=== PATIENT | female | born 1940 | race Caucasian/White ===

== ENCOUNTER 2016-10-01 07:30 | Inpatient (IN) | payer MEDICARE, BC ==
[~2016-10-01 07:30] MED LIST: TRANEXAMIC ACID 1,000 MG in NORMAL SALINE 100 ML IV SCH
[2016-10-01] MEDS ORDERED: ONDANSETRON HCL 4 MG/2 ML VIAL IV ONE (07:52)
[2016-10-01] MEDS ORDERED: METOCLOPRAMIDE HCL 10 MG/2 ML VIAL IV ONE (07:52)
[2016-10-01] MEDS ORDERED: LIDOCAINE HCL 1% 20 ML VIAL SUBCUT ONE (07:52)
[2016-10-01] MEDS ORDERED: NALOXONE HCL 0.4 MG/ML VIAL IV PRN ×9 (07:55→14:14)
[2016-10-01] MEDS ORDERED: DIPHENHYDRAMINE 25 MG CAPSULE PO PRN ×3 (07:55→14:14)
[2016-10-01] MEDS ORDERED: DIPHENHYDRAMINE 50 MG/ML VIAL IV PRN ×3 (07:55→14:14)
[2016-10-01] MEDS ORDERED: NALBUPHINE HCL 10 MG/ML AMP IV PRN ×3 (07:55→14:14)
[2016-10-01] MEDS ORDERED: ONDANSETRON HCL 4 MG/2 ML VIAL IV PRN (07:56)
[2016-10-01] MEDS ORDERED: FENTANYL 100 MCG/2 ML VIAL IV PRN (07:56)
[2016-10-01] MEDS ORDERED: LACTATED RINGERS 1,000 ML IV SCH (08:00)
[2016-10-01] MEDS ORDERED: FAMOTIDINE IN SALINE, ISO-OSM 20 MG/50 ML PIGGYBACK IV SCH (08:00)
[2016-10-01] MEDS ORDERED: CLINDAMYCIN/D5W 50 ML IV ONE (08:32)
[2016-10-01] MEDS ORDERED: FAMOTIDINE IN SALINE, ISO-OSM 50 ML IV ONE (08:44)
[2016-10-01] MEDS ORDERED: MIDAZOLAM HCL 2 MG/2 ML VIAL ONE (08:46)
[2016-10-01] MEDS ORDERED: FENTANYL 100 MCG/2 ML VIAL ONE (08:47)
[2016-10-01] MEDS ORDERED: MORPHINE SULFATE/PF 10 MG/10 ML VIAL ONE ×2 (08:47→10:30)
[2016-10-01] MEDS ORDERED: TETRACAINE HCL 1% 20 MG/2 ML AMP ONE (08:55)
[2016-10-01] MEDS ORDERED: KETOROLAC TROMETHAMINE 30 MG/ML VIAL ONE (10:30)
[2016-10-01] MEDS ORDERED: BUPIVACAINE/EPI 0.25% 1 VIAL VIAL ONE (10:31)
[2016-10-01] MEDS ORDERED: ROPIVACAINE HCL 0.5% 30 ML ONE ×2 (10:31→12:16)
[2016-10-01] MEDS ORDERED: CLINDAMYCIN IV ONE (10:46)
[2016-10-01] MEDS ORDERED: D5W IV ONE (10:46)
[2016-10-01] MEDS ORDERED: ONDANSETRON HCL 4 MG/2 ML VIAL ONE (12:09)
[2016-10-01] MEDS ORDERED: NORMAL SALINE FLUSH 40 ML ONE (12:45)
[2016-10-01] MEDS ORDERED: LACTATED RINGERS 1,000 ML IV ONE (21:26)
[2016-10-01] MEDS: LACTATED RINGERS 1,000 ML IV SCH (23:00)
[2016-10-01] MEDS ORDERED: CYCLOSPORINE OPHTH 0.05% 1 DROP/0.4 ML DROPERETTE EACHEYE SCH (23:30)
[2016-10-01] MEDS: CLINDAMYCIN/D5W 600 MG/50 ML 600 MG PIGGYBACK IV SCH (23:37)
[2016-10-02 05:49] LABS: BASOPHILS 0.7 % (0.0-2.0); EOSINOPHILS# 0.1 X 10^3uL (0.0-0.4); HEMOGLOBIN 9.6 g/dL (12.0-16.0); LYMPHOCYTES 27.3 % (20.0-40.0); LYMPHOCYTES# 1.3 X 10^3uL (0.8-3.8); MEAN PLATELET VOLUME 9.2 fL (7.4-10.4); MONOCYTES# 0.4 X 10^3uL (0.2-1.0); NEUTROPHILS# 3.1 X 10^3uL (2.6-6.7); RED BLOOD COUNT 4.23 X 10^6uL (4.20-6.10); WHITE BLOOD COUNT 4.9 X 10^3uL (3.9-10.7)
[2016-10-02 06:22] LABS: MEAN CORPUSCULAR HEMOGLOBIN 22.8 pg (29.0-35.0); RED CELL DISTRIBUTION WIDTH 16.6 % (11.5-14.5)
[2016-10-02] MEDS: LACTATED RINGERS 1,000 ML IV SCH (06:47)
[2016-10-02] MEDS ORDERED: LACTATED RINGERS 1,000 ML IV SCH ×6 (08:14→13:11)
[2016-10-02] MEDS ORDERED: VANCOMYCIN HCL 1,000 MG in NORMAL SALINE 250 ML IV ONE (08:14)
[2016-10-02] MEDS ORDERED: TRANEXAMIC ACID 1,000 MG in NORMAL SALINE 100 ML IV SCH (08:30)
[2016-10-02] MEDS ORDERED: MORPHINE SULFATE 4 MG/ML SYR ONE (08:39)
[2016-10-02] MEDS ORDERED: VANCOMYCIN HCL 1,000 MG/20 ML VIAL ONE (08:39)
[2016-10-02] MEDS ORDERED: NORMAL SALINE 10 ML VIAL ONE (08:40)
[2016-10-02] MEDS ORDERED: BACITRACIN 50,000 UNITS VIAL IM ONE (08:40)
[2016-10-02] MEDS ORDERED: ROPIVACAINE HCL 0.5% 30 ML ONE (08:40)
[2016-10-02] MEDS ORDERED: BACITRACIN 14 APP/14 GM TUBE TOPICAL ONE (08:40)
[2016-10-02] MEDS ORDERED: BUPIVACAINE/EPI 0.25% 1 VIAL VIAL ONE (08:40)
[2016-10-02] MEDS ORDERED: NORMAL SALINE FLUSH 30 ML ONE (08:53)
[2016-10-02] MEDS ORDERED: CYCLOSPORINE OPHTH 0.05% 1 DROP/0.4 ML DROPERETTE EACHEYE SCH ×3 (09:00→21:00)
[2016-10-02] MEDS ORDERED: KETOROLAC TROMETHAMINE 30 MG/ML VIAL ONE (09:24)
[2016-10-02] MEDS ORDERED: MIDAZOLAM HCL 2 MG/2 ML SYR IV ONE ×2 (09:55→13:11)
[2016-10-02] MEDS ORDERED: MIDAZOLAM HCL 2 MG/2 ML VIAL ONE (09:58)
[2016-10-02] MEDS ORDERED: FAMOTIDINE IN SALINE, ISO-OSM 20 MG/50 ML PIGGYBACK IV SCH ×2 (10:00→13:11)
[2016-10-02] MEDS ORDERED: TETRACAINE HCL 1% 20 MG/2 ML AMP ONE (10:00)
[2016-10-02] MEDS ORDERED: FAMOTIDINE IN SALINE, ISO-OSM 50 ML IV ONE (10:03)
[2016-10-02] MEDS ORDERED: EPHEDrine SULFATE 50 MG/ML VIAL ONE (10:38)
[2016-10-02] MEDS ORDERED: MORPHINE SULFATE 10 MG/ML SYR IV PRN (13:11)
[2016-10-02] MEDS ORDERED: DIPHENHYDRAMINE 50 MG/ML VIAL IV PRN (13:11)
[2016-10-02] MEDS ORDERED: ONDANSETRON HCL 4 MG/2 ML VIAL IV PRN ×2 (13:11→14:50)
[2016-10-02] MEDS ORDERED: NALBUPHINE HCL 10 MG/ML AMP IV PRN (13:11)
[2016-10-02] MEDS ORDERED: FENTANYL 100 MCG/2 ML VIAL IV PRN (13:11)
[2016-10-02] MEDS ORDERED: NALOXONE HCL 0.4 MG/ML VIAL IV PRN ×3 (13:11)
[2016-10-02] MEDS ORDERED: DIPHENHYDRAMINE 25 MG CAPSULE PO PRN (13:11)
--- NOTE | 2016-10-02 14:14 | OPERATIVE REPORT ---
DATE OF SURGERY: 10/02/16 SURGEON: Rene Cullen DO ANESTHESIA: Spinal. PREOPERATIVE DIAGNOSIS: Left knee osteoarthritis. POSTOPERATIVE DIAGNOSIS: Left knee osteoarthritis. OPERATION PERFORMED: Left total knee arthroplasty. SPECIMENS REMOVED: Diseased bone and soft tissue. ESTIMATED BLOOD LOSS: Minimal. TOTAL TOURNIQUET TIME: 75 minutes. PROCEDURE NOTE: The patient was brought to the operating room suite and after administration of spinal anesthesia the left lower extremity was prepped and draped in a sterile fashion. The patient's varus deformity was corrected to draw the incision line on the skin. The incision site was injected with 0.25% bupivacaine with epinephrine prior to incision. A midline longitudinal incision was made over the anterior aspect of the left knee. Dissection was carried down to the extensor mechanism. There was a significant amount of scar tissue on the anterior aspect of the knee which was dissected out to make appropriate flaps. The medial parapatellar arthrotomy was created. A portion of the anterior fat pad was removed for visualization purposes. The patella was everted and an intramedullary drill was inserted into the femoral canal and the femoral cutting guide was placed and appropriate bone defects were created with a saw on both of the femur and tibia. The tibia cutting guide was extramedullary. All appropriate bone defects were made on the femur, tibia and patella. Trial implants were inserted. The knee was well balanced with a 10 mm trial spacer. The knee was taken through a full range of motion and noted to be exceptionally stable and well balanced in both flexion, extension, varus and valgus. The knee was copiously irrigated with bacitracin infused with normal saline with pulsatile lavage and the final implants were cemented into place. While the cement was curing, the heal was placed on the Peck stand. All excess cement was removed. The knee was again copiously irrigated with bacitracin infused with normal saline and was injected with the cocktail containing 150 mg of ropivacaine, 15 mg of Ketorolac, 0.3 mg epinephrine, and 4 mg morphine sulfate in total volume of 60 mL, making up the difference utilizing 0.9% normal saline for a total volume of 60 mL. The final polyethylene was inserted and snapped into place with the locking pin. The knee was then closed in a stepwise fashion utilizing #2 Fiberwire followed by intermittent #1 Vicryl on the parapatellar arthrotomy. The deep fascia was closed with 0 Vicryl, followed by 2-0 Vicryl, followed by 3-0 Monocryl subcutaneously at the level of the skin, followed by Dermabond. The knee was dressed with an occlusive Aquacel dressing, followed by an Max bandage. The patient did have a drain which was in place and was not sewn into place. Patient's leg was fitted with a AJITH hose and a Cryo-Cuff and she was transferred to the recovery room in stable condition. FINAL IMPLANTS 1. [employer] cobalt bone cement, high viscosity with Gentamycin. 2. [employer] fixed cruciate tibial plate interlock with locking bar, Vanguard, size 67 mm, titanium cobalt chrome molybdenum alloy. 3. [employer] Vanguard posterior stabilize open box femoral component left, 65 mm, cobalt chrome molybdenum alloy. 4. [employer] Vanguard series A standard patella 3 pegs, ultrahigh molecular weight polyethylene 34 mm x 8.5 mm. 5. [employer] Vanguard knee system posterior stabilized tibial bearing, ultrahigh molecular weight polyethylene, 10 mm x 63/67 mm ultrahigh molecular weight polyethylene. [facility]
[2016-10-02] MEDS ORDERED: MORPHINE SULFATE 2 MG/ML SYR ONE (14:19)
[2016-10-02] MEDS ORDERED: HYDROcodone/APAP 5/325 MG 1 TAB TABLET PO PRN (14:50)
--- NOTE | 2016-10-02 18:19 | HISTORY & PHYSICAL ---
DATE OF CONSULTATION: 10/02/16 PHYSICIAN: Rene Cullen DO HISTORY OF PRESENT ILLNESS: Patient is a 75-year-old female who presented to the operating room on 10/01/16 for a left total knee arthroplasty. The patient did receive spinal anesthesia with narcotics. There were some problems with the instruments and the autoclave machine, and the patients surgery was not able to be done on the scheduled date, and due to the fact that she had received spinal narcotics, she needed to be admitted to the hospital overnight for neurovascular observation. PAST MEDICAL HISTORY 1. Bilateral knee osteoarthritis. 2. Osteopenia. 3. Dry eye syndrome. 4. Colon polyps. 5. Acinetic keratosis. 6. Tinnitus. 7. Dyspnea on exertion. ALLERGIES: Cephalosporins. FAMILY HISTORY: Mother and father are both at ages 74 and 80 with coronary artery disease and lung cancer respectively. She occasionally uses alcohol and has never been a smoker. MEDICATIONS Calcium. Vitamin D. Glucosamine chondroitin. Ophthalmic drop Restasis. PHYSICAL EXAMINATION HEENT: Pupils are equally round and reactive to light and accommodation. Extraocular muscles are intact. CHEST: Clear to auscultation bilaterally. HEART: Regular rate and rhythm with normal S1, S2. ABDOMEN: Soft, nontender, nondistended. BILATERAL LOWER EXTREMITIES: Without sensation as the patient just received spinal anesthesia. ASSESSMENT: Status post spinal anesthesia with narcotics with a cancelled total knee arthroplasty on the left knee. PLAN: Patient will be admitted for neurovascular observation, and will have her total knee arthroplasty done the next day which is 10/02/16. Patient will be NPO at midnight and will receive IV fluids. MTDD
[2016-10-02] MEDS: DOCUSATE SODIUM 100 MG CAPSULE PO SCH (22:33)
[2016-10-02] MEDS: CYCLOSPORINE OPHTH 0.05% 1 DROP/0.4 ML DROPERETTE EACHEYE SCH (22:33)
[2016-10-02] MEDS: VANCOMYCIN HCL 1,000 MG in NORMAL SALINE ADDVANTAGE 250 ML IV SCH (22:33)
[2016-10-02] MEDS: ACETAMINOPHEN 325 MG TABLET PO PRN (23:30)
[2016-10-03] MEDS: ACETAMINOPHEN 325 MG TABLET PO PRN ×5 (05:47→20:24)
[2016-10-03 06:24] LABS: BASOPHILS 0.2 % (0.0-2.0); EOSINOPHILS 0.5 % (0.0-6.0); HEMATOCRIT 28.6 % (36.0-48.0); HEMOGLOBIN 9.1 g/dL (12.0-16.0); LYMPHOCYTES 17.2 % (20.0-40.0); LYMPHOCYTES# 1.2 X 10^3uL (0.8-3.8); MEAN CELL VOLUME 71.4 fL (84.0-102.0); MEAN CORPUSCULAR HEMOGLOBIN 22.9 pg (29.0-35.0); MEAN PLATELET VOLUME 9.1 fL (7.4-10.4); MONOCYTES# 0.7 X 10^3uL (0.2-1.0); NEUTROPHILS 72.4 % (54.0-75.0); NEUTROPHILS# 4.9 X 10^3uL (2.6-6.7); RED CELL DISTRIBUTION WIDTH 16.7 % (11.5-14.5); WHITE BLOOD COUNT 6.8 X 10^3uL (3.9-10.7)
[2016-10-03 06:33] LABS: MONOCYTES 9.7 % (2.0-10.0)
[2016-10-03] MEDS: VANCOMYCIN HCL 1,000 MG in NORMAL SALINE ADDVANTAGE 250 ML IV SCH ×2 (08:25→20:17)
[2016-10-03] MEDS: DOCUSATE SODIUM 100 MG CAPSULE PO SCH ×2 (08:25→20:18)
[2016-10-03] MEDS: BISACODYL 5 MG TABLET PO SCH (08:25)
[2016-10-03] MEDS: ENOXAPARIN SODIUM 30 MG/0.3 ML SYR SUBCUT SCH ×2 (08:26→20:18)
--- NOTE | 2016-10-03 10:45 | RADIOLOGY REPORT ---
Two views of the left knee are compared with prior films dated 11/22/2015. There has been interval total knee arthroplasty. Components appear intact and in appropriate position. No other change is identified. IMPRESSION: Unremarkable total knee arthroplasty. MTDD
[2016-10-03] MEDS: CYCLOSPORINE OPHTH 0.05% 1 DROP/0.4 ML DROPERETTE EACHEYE SCH ×2 (13:42→20:19)
[2016-10-03] MEDS: POLYETHYLENE GLYCOL 3350 17 GM POWD.PACK PO SCH (13:43)
--- NOTE | 2016-10-03 16:29 | PROGRESS NOTE: Orthopedics ---
Orthopedic PN Subjective - Subjective Principal Diagnosis: s/p Left Total Knee Arthroplasty Post-op Day: 1 Interval history: the patient has been doing She has been up and a Her [facility] has been dis She did not get very good sleep last Night, but she is doing better She is complaining of weakness with motion of her foot Ortho PN Objective Exam - Latest Vital Signs and I&O Latest Vital Signs/I&O: Vital Signs Temp 36.8 C 10/03/16 11:00 Pulse 80 10/03/16 11:00 Resp 16 10/03/16 11:00 BP 136/73 10/03/16 11:00 Pulse Ox 93 10/03/16 11:00 Intake & Output 10/02/16 10/03/16 10/03/16 17:59 05:59 17:59 Intake Total 4990 2224 Output Total 3500 3305 Balance 1490 -1081 Weight 62.596 kg Intake: IV 3140 994 Right Wrist 3140 994 Oral 1850 1230 Output: Drainage 150 380 Left Knee 150 380 Urine 3350 2925 Uretheral ([facility]) 850 Other: Urine Appearance Clear Clear Clear Urine Color Yellow Pale Pale Uretheral ([facility]) Pale Yellow Voiding Method Indwelling Catheter Indwelling Catheter Indwelling Catheter - Post-Operative Exam Post-op Day: 1 Incision: Present: clean and dry Dressing Status: dry & intact Distal Pulses: +2 Active Motor: intact Sensation: intact Андрей's sign: Negative Calf tenderness: no Weight bearing status: full Additional Exam: tibialis anterior and extensor hallux longus are 0/5. The patient has normal diminished sensation in the First webspace. - Lab Labs: Laboratory Last Values WBC 6.8 X 10^3uL (3.9-10.7) 10/03/16 05:45 RBC 4.00 X 10^6uL (4.20-6.10) L 10/03/16 05:45 Hgb 9.1 g/dL (12.0-16.0) L 10/03/16 05:45 Hct 28.6 % (36.0-48.0) L 10/03/16 05:45 MCV 71.4 fL (84.0-102.0) L 10/03/16 05:45 MCH 22.9 pg (29.0-35.0) L 10/03/16 05:45 MCHC 32.0 g/dL (32.0-36.0) 10/03/16 05:45 RDW 16.7 % (11.5-14.5) H 10/03/16 05:45 Plt Count 203 X 10^3uL (130-440) 10/03/16 05:45 MPV 9.1 fL (7.4-10.4) 10/03/16 05:45 Neutrophils % 72.4 % (54.0-75.0) 10/03/16 05:45 Lymphocytes % 17.2 % (20.0-40.0) L 10/03/16 05:45 Eosinophils % 0.5 % (0.0-6.0) 10/03/16 05:45 Basophils % 0.2 % (0.0-2.0) 10/03/16 05:45 Neutrophils # 4.9 X 10^3uL (2.6-6.7) 10/03/16 05:45 Lymphocytes # 1.2 X 10^3uL (0.8-3.8) 10/03/16 05:45 Monocytes 9.7 % (2.0-10.0) 10/03/16 05:45 Monocytes # 0.7 X 10^3uL (0.2-1.0) 10/03/16 05:45 Eosinophils # 0.0 X 10^3uL (0.0-0.4) 10/03/16 05:45 Basophils # 0.0 X 10^3uL (0.0-0.1) 10/03/16 05:45 PT Cancelled 10/01/16 07:52 Capillary INR 0.9 (0.8-1.2) 10/01/16 07:52 INR Cancelled 10/01/16 07:52 - Allied Health Notes Allied health notes reviewed: nursing, PT Assessment and Plan-Ortho - Date of Encounter Date of Encounter: 10/03/16 (1) Primary osteoarthritis of left knee Status: Chronic Assessment and plan: Status post left total knee arthroplasty. The patient does have a foot drop either from the injected block intraoperatively or the tourniquet. While this transient neuropraxia is resolving, a well-padded posterior fiberglass splint and and an Max bandage will be placed on her foot while at rest. The patient will continue physical therapy. Her Hemovac drain was discontinued. The patient will continue with her DVT and antibiotic prophylaxis. Current Visit: Yes Estimated anticipated discharge: pod 3 Quality Questions - VTE Prophylaxis Assessment VTE Present on Admission?: No Patient at risk for venous thromboembolism?: Yes VTE Risk Level: High Risk VTE Medical Contraindication: Not needed
[2016-10-04] MEDS: ACETAMINOPHEN 325 MG TABLET PO PRN ×4 (02:39→19:36)
[2016-10-04 06:02] LABS: BASOPHILS 0.4 % (0.0-2.0); EOSINOPHILS 0.5 % (0.0-6.0); HEMATOCRIT 26.8 % (36.0-48.0); LYMPHOCYTES 10.7 % (20.0-40.0); LYMPHOCYTES# 0.7 X 10^3uL (0.8-3.8); MEAN CELL VOLUME 71.1 fL (84.0-102.0); MEAN CORPUS. HGB CONCENTRATION 32.8 g/dL (32.0-36.0); MEAN CORPUSCULAR HEMOGLOBIN 23.4 pg (29.0-35.0); MEAN PLATELET VOLUME 9.2 fL (7.4-10.4); MONOCYTES 8.6 % (2.0-10.0); MONOCYTES# 0.6 X 10^3uL (0.2-1.0); NEUTROPHILS 79.8 % (54.0-75.0); NEUTROPHILS# 5.3 X 10^3uL (2.6-6.7); RED BLOOD COUNT 3.77 X 10^6uL (4.20-6.10); WHITE BLOOD COUNT 6.6 X 10^3uL (3.9-10.7)
[2016-10-04 06:19] LABS: HEMOGLOBIN 8.8 g/dL (12.0-16.0)
[2016-10-04 06:20] LABS: RED CELL DISTRIBUTION WIDTH 16.8 % (11.5-14.5)
[2016-10-04] MEDS: DOCUSATE SODIUM 100 MG CAPSULE PO SCH ×2 (08:30→20:00)
[2016-10-04] MEDS: BISACODYL 5 MG TABLET PO SCH (08:31)
[2016-10-04] MEDS: ENOXAPARIN SODIUM 30 MG/0.3 ML SYR SUBCUT SCH ×2 (08:32→20:00)
[2016-10-04] MEDS: POLYETHYLENE GLYCOL 3350 17 GM POWD.PACK PO SCH (08:32)
[2016-10-04] MEDS: CYCLOSPORINE OPHTH 0.05% 1 DROP/0.4 ML DROPERETTE EACHEYE SCH ×2 (08:33→20:04)
--- NOTE | 2016-10-04 09:15 | PROGRESS NOTE: Orthopedics ---
Orthopedic PN Subjective - Subjective Principal Diagnosis: s/p Left Total Knee Arthoroplsaty Post-op Day: 2 Interval history: The patient has been doing well with her postoperative physical therapy. She has been receiving her postoperative DVT and antibiotic prophylaxis. Her pain has been well-controlled. Ortho PN Objective Exam - Latest Vital Signs and I&O Latest Vital Signs/I&O: Vital Signs Temp 37.2 C 10/04/16 06:19 Pulse 82 10/04/16 06:19 Resp 18 10/04/16 06:19 BP 126/76 10/04/16 06:19 Pulse Ox 93 10/04/16 06:19 Intake & Output 10/03/16 10/04/16 10/04/16 17:59 05:59 17:59 Intake Total 1450 1750 Output Total 800 1750 Balance 650 0 Intake: IV 250 Right Wrist 250 Oral 1200 1750 Output: Urine 800 1750 Stool 0 0 Other: Urine Appearance Clear Clear Urine Color Yellow Yellow Voiding Method Toilet Bedside Commode # Voids 3 3 # Bowel Movements 0 - Post-Operative Exam Post-op Day: 2 Incision: Present: clean and dry Dressing Status: dry & intact Drainage Amount: none Distal Pulses: +2 Active Motor: abnormal (EHL & TA 1/5) Sensation: abnormal (Foot dorsum 10/10; 1st web space 6/10.) Андрей's sign: Negative Calf tenderness: no Weight bearing status: as tolerated - Lab Labs: Laboratory Last Values WBC 6.6 X 10^3uL (3.9-10.7) 10/04/16 05:00 RBC 3.77 X 10^6uL (4.20-6.10) L 10/04/16 05:00 Hgb 8.8 g/dL (12.0-16.0) L 10/04/16 05:00 Hct 26.8 % (36.0-48.0) L 10/04/16 05:00 MCV 71.1 fL (84.0-102.0) L 10/04/16 05:00 MCH 23.4 pg (29.0-35.0) L 10/04/16 05:00 MCHC 32.8 g/dL (32.0-36.0) 10/04/16 05:00 RDW 16.8 % (11.5-14.5) H 10/04/16 05:00 Plt Count 173 X 10^3uL (130-440) 10/04/16 05:00 MPV 9.2 fL (7.4-10.4) 10/04/16 05:00 Neutrophils % 79.8 % (54.0-75.0) H 10/04/16 05:00 Lymphocytes % 10.7 % (20.0-40.0) L 10/04/16 05:00 Eosinophils % 0.5 % (0.0-6.0) 10/04/16 05:00 Basophils % 0.4 % (0.0-2.0) 10/04/16 05:00 Neutrophils # 5.3 X 10^3uL (2.6-6.7) 10/04/16 05:00 Lymphocytes # 0.7 X 10^3uL (0.8-3.8) L 10/04/16 05:00 Monocytes 8.6 % (2.0-10.0) 10/04/16 05:00 Monocytes # 0.6 X 10^3uL (0.2-1.0) 10/04/16 05:00 Eosinophils # 0.0 X 10^3uL (0.0-0.4) 10/04/16 05:00 Basophils # 0.0 X 10^3uL (0.0-0.1) 10/04/16 05:00 PT Cancelled 10/01/16 07:52 Capillary INR 0.9 (0.8-1.2) 10/01/16 07:52 INR Cancelled 10/01/16 07:52 - Allied Health Notes Allied health notes reviewed: nursing, PT Assessment and Plan-Ortho - Date of Encounter Date of Encounter: 10/04/16 (1) Primary osteoarthritis of left knee Status: Chronic Assessment and plan: Status post left total knee arthroplasty. The patient's foot drop may also be attributed to preoperative flexion contracture. Neuropraxia is resolving with an increase sensation today in the 1st web space. The patient will continue physical therapy. Probable d/c home in AM. Current Visit: Yes Estimated anticipated discharge: pod 3
[2016-10-05] MEDS: ACETAMINOPHEN 325 MG TABLET PO PRN ×3 (03:35→18:29)
[2016-10-05 05:51] LABS: BASOPHILS 0.4 % (0.0-2.0); EOSINOPHILS 0.7 % (0.0-6.0); EOSINOPHILS# 0.1 X 10^3uL (0.0-0.4); HEMATOCRIT 24.6 % (36.0-48.0); HEMOGLOBIN 7.6 g/dL (12.0-16.0); LYMPHOCYTES 11.5 % (20.0-40.0); LYMPHOCYTES# 0.8 X 10^3uL (0.8-3.8); MEAN CELL VOLUME 71.4 fL (84.0-102.0); MEAN CORPUSCULAR HEMOGLOBIN 22.1 pg (29.0-35.0); MEAN PLATELET VOLUME 8.9 fL (7.4-10.4); MONOCYTES 11.4 % (2.0-10.0); MONOCYTES# 0.8 X 10^3uL (0.2-1.0); NEUTROPHILS# 5.6 X 10^3uL (2.6-6.7); RED BLOOD COUNT 3.44 X 10^6uL (4.20-6.10); RED CELL DISTRIBUTION WIDTH 16.8 % (11.5-14.5); WHITE BLOOD COUNT 7.3 X 10^3uL (3.9-10.7)
--- NOTE | 2016-10-05 08:27 | DC SUMMARY: Orthopedic Note ---
Discharge Summary: Surg/OB Provider: Date of Admission: 10/01/16 Admitting Provider: KAM MENA DO Attending Provider: KAM MENA DO Discharging Provider: KAM MENA DO Primary Care Provider: Discharge Date: 10/05/16 - Diagnosis (1) Primary osteoarthritis of left knee Status: Chronic Hospital Course: Ms. HOPSON is a 75 year old female who was admitted to the hospital on October 01. Her total knee arthroplasty originally scheduled for but due to some malfunctioning of the surgical Department sterilization equipment the patient's surgery was postponed one day. She had a spinal anfore was admitted to the hospital for observation. She underwent her left total knee arthroplasty on 02 October. The patient did received postoperative DVT and antibiotic prophylaxis The patient had a allergy to cephalosporins and was hospitalized at the time so she received vancomycin for her prophylactic antibiotic regimen postoperatively. She does have a postoperative foot-drop with diminished sensation in the first webspace which is improving both extensor hallux longus and tibialis anterior have not returned yet at the time of discharge. The patient did have a 15 flexion contracture and this is the most likely etiology of her neuropraxia currently as she now has a straight leg. Alternatively the knee block that she received intraoperatively may have also contributed. On the day of discharge the patient is ambulating well with physical therapy and is transferring well. She is using oxycodone and Tylenol for analgesia. The patient did have postoperative acute blood loss anemia with a hemiglobin of 7.6 and will receive 2U PRBCs and follow up labs prior to discharge. Discharge - Patient/Caregiver Discharge Instructions Activity Level: WBAT Diet: reg Overall discharge status: stable Home Medications: HYDROcodone/APAP 5/325 MG [HYDROCODONE/APAP 5mg/325mg*] 1 - 2 tab PO Q4H PRN # 60 tablet PRN Reason: Pain, Severe Enoxaparin Sodium [LOVENOX 30mg/0.3mL*] 30 mg SUBCUT BID #22 syr Disposition: HOME, SELF-CARE Orthopedic: Discharge Phy Exam - Latest Vital Signs and I&O Latest Vital Signs/I&O: Vital Signs Temp 36.7 C 10/05/16 07:00 Pulse 84 10/05/16 07:00 Resp 17 10/05/16 07:00 BP 105/71 10/05/16 07:00 Pulse Ox 91 10/05/16 07:00 Intake & Output 10/04/16 10/05/16 10/05/16 17:59 05:59 17:59 Intake Total 1220 400 240 Output Total 1250 500 Balance -30 -100 240 Intake: Oral 1220 400 240 Output: Urine 1250 500 Stool 0 Other: Urine Appearance Clear Urine Color Yellow Voiding Method Toilet # Voids 1 # Bowel Movements 0 - Post-Operative Exam Post-op Day: 3 Incision: Present: clean and dry Dressing Status: dry & intact Drainage Amount: none Distal Pulses: +2 Active Motor: abnormal (EHL and TA) Sensation: abnormal (Foot dorsum 10/10; 1st web space 6/10.) Андрей's sign: Negative Calf tenderness: no Weight bearing status: as tolerated - Allied Health Notes Allied health notes reviewed: nursing, PT Discharge Summary Data - Medication History Medication History: Home Medications Cyclosporine Ophth 0.05% [Restasis Ophth Emul 0.05%] 1 drop EACHEYE BID Ibuprofen [Ibuprofen*] 800 mg PO TID PRN 08/23/15 aspirin EC [Aspirin EC*] 81 mg PO DAILY 08/26/15 Calcium Carbonate/Vitamin D3 [Calcium 600 + Vit D 400 Tablet] 1 tab PO DAILY Inpatient Medications 10/02/16 14:50 Acetaminophen [Tylenol] 325 - 650 mg PO Q4H PRN HYDROcodone/APAP 5/325 MG [Keeling] 2 tab PO Q3H PRN Ondansetron HCl [Zofran] 4 mg IV Q4H PRN oxyCODONE HCL IR [Oxy Ir] 5 - 10 mg PO Q3H PRN 10/02/16 21:00 Cyclosporine Ophth 0.05% [Restasis Ophth Emul 0.05%] 1 drop EACHEYE BID Docusate Sodium [Colace] 100 mg PO BID 10/03/16 09:00 Bisacodyl [Dulcolax] 10 mg PO DAILY Enoxaparin Sodium [Lovenox] 30 mg SUBCUT BID Polyethylene Glycol 3350 [miraLAX] 17 gm PO DAILY Procedures and tests throughout hospitalization: Completed Lab Orders 10/01/16 07:52 INR W/ CAPI DRAW [HEM] Urgent 10/02/16 05:00 CBC AUTO DIF, MDIF/RMOR IF IND [HEM] AMDRAW 10/03/16 05:45 CBC AUTO DIF, MDIF/RMOR IF IND [HEM] AMDRAW 10/04/16 05:00 CBC AUTO DIF, MDIF/RMOR IF IND [HEM] AMDRAW 10/05/16 05:00 CBC AUTO DIF, MDIF/RMOR IF IND [HEM] AMDRAW Completed Imaging Orders 10/02/16 14:50 KNEE; 1 [place] [address] [place] [address] [RAD] Routine Pending Orders 09/26/16 13:37 PreOp Chlorahexidine wash .5minPreOp PreOp Shave with Clippers ONCE Resuscitation Status Routine 10/01/16 07:52 Insert Peripheral IV ONCE 10/01/16 07:55 Maintain IV access post spinal CONTINUOUS Monitor End Tidal CO2 CONTINUOUS Narcan @ bedside x24h after sp .x24hrs Oxygen by Nasal Cannula TITRATE B/W 90-95% Vital Signs Q1HX12,Q2H 10/01/16 07:56 Rocio hugger if temp <34 C PRN Did pt have a spinal/epidural? . Titrate Oxygen TITRATE B/W 90-95% Warm blankets if temp<36 C PRN 10/01/16 07:59 Maintain IV access post spinal CONTINUOUS Monitor End Tidal CO2 CONTINUOUS Narcan @ bedside x24h after sp .x24hrs Oxygen by Nasal Cannula TITRATE TO >90% Vital Signs Q1HX12,Q2H 10/01/16 14:14 Activity: BRP w/ Assist Only . Did pt have a spinal/epidural? . Narcan @ bedside x24h after sp .x24hrs 10/02/16 09:55 Anesthesia Type . 10/02/16 13:11 Rocio hugger if temp <34 C PRN Did pt have a spinal/epidural? . Maintain IV access post spinal CONTINUOUS Monitor End Tidal CO2 CONTINUOUS Narcan @ bedside x24h after sp .x24hrs Oxygen by Nasal Cannula TITRATE TO >90% Titrate Oxygen TITRATE TO >90% Vital Signs Q1HX12,Q2H Warm blankets if temp<36 C PRN 10/02/16 14:25 Physical Therapy Plan of Care [PT] Routine 10/02/16 14:50 Admit: Inpatient Routine Activity: Ambulate with Assist TID Activity: BRP w/ Assist Only . Activity: FWB USE WALKER Activity: Knee Extension . Activity: Up to Chair TID Apply ice to affected area PRN Circulatory Sensory Motor Asse Q15MX4,Q30MX2,Q1HX2,Q4H Clinical Pathway: updt in cht QSHIFT Incentive Spirometry Q1H Intake and Output QSHIFT I&O Notify Physician . Physician to change dressing PRN Sequential Compression Device WHILE IN BED AJITH Hose CONTINUOUS Titrate Oxygen TITRATE TO >90% Turn, Cough, and Deep Breathe Q2H Vital Signs ROUTINE VITALS (Q4H) Ship Construction Teacher Consult [CM] Routine OCCULT BLOOD (1-3 SAMPLES) [RM] Acetaminophen [Tylenol] 325 - 650 mg PO Q4H PRN HYDROcodone/APAP 5/325 MG [Keeling] 2 tab PO Q3H PRN Ondansetron HCl [Zofran] 4 mg IV Q4H PRN oxyCODONE HCL IR [Oxy Ir] 5 - 10 mg PO Q3H PRN 10/02/16 21:00 Cyclosporine Ophth 0.05% [Restasis Ophth Emul 0.05%] 1 drop EACHEYE BID Docusate Sodium [Colace] 100 mg PO BID 10/03/16 08:52 Occupation Therapy Eval and Treat [OT] Routine 10/03/16 09:00 Bisacodyl [Dulcolax] 10 mg PO DAILY Enoxaparin Sodium [Lovenox] 30 mg SUBCUT BID Polyethylene Glycol 3350 [miraLAX] 17 gm PO DAILY 10/03/16 Breakfast Regular [DIET] Labs on day of discharge: Labs from last 24 hours 10/05/16 05:00 WBC 7.3 RBC 3.44 L Hgb 7.6 L Hct 24.6 L MCV 71.4 L MCH 22.1 L MCHC 31.0 L RDW 16.8 H Plt Count 159 MPV 8.9 Neutrophils % 76.0 H Lymphocytes % 11.5 L Eosinophils % 0.7 Basophils % 0.4 Neutrophils # 5.6 Lymphocytes # 0.8 Monocytes 11.4 H Monocytes # 0.8 Eosinophils # 0.1 Basophils # 0.0
[2016-10-05] MEDS: ENOXAPARIN SODIUM 30 MG/0.3 ML SYR SUBCUT SCH (08:37)
[2016-10-05] MEDS: BISACODYL 5 MG TABLET PO SCH (08:37)
[2016-10-05] MEDS: DOCUSATE SODIUM 100 MG CAPSULE PO SCH (08:37)
[2016-10-05] MEDS: POLYETHYLENE GLYCOL 3350 17 GM POWD.PACK PO SCH (08:37)
[2016-10-05 09:35] LABS: HEMATOCRIT 26.1 % (36.0-48.0); HEMOGLOBIN 7.7 g/dL (12.0-16.0); MEAN CELL VOLUME 71.8 fL (84.0-102.0); MEAN CORPUS. HGB CONCENTRATION 29.4 g/dL (32.0-36.0); MEAN CORPUSCULAR HEMOGLOBIN 21.1 pg (29.0-35.0); MEAN PLATELET VOLUME 8.9 fL (7.4-10.4); PLATELET COUNT 198 X 10^3uL (130-440); RED BLOOD COUNT 3.64 X 10^6uL (4.20-6.10); RED CELL DISTRIBUTION WIDTH 17.1 % (11.5-14.5); WHITE BLOOD COUNT 7.3 X 10^3uL (3.9-10.7)
[2016-10-05 10:17] LABS: ABO GROUP TYPE A; ANTIBODY SCREEN NEGATIVE; RH TYPE POSITIVE
[2016-10-05] MEDS ORDERED: NORMAL SALINE 250 ML IV ONE (10:33)
[2016-10-05] MEDS: CYCLOSPORINE OPHTH 0.05% 1 DROP/0.4 ML DROPERETTE EACHEYE SCH (11:08)
[2016-10-05 11:35] LABS: CROSSMATCH IMMEDIATE SPIN COMPATIBLE
[2016-10-05 11:43] LABS: BAND% (Manual) 2 % (0.0-1.0); EOSINOPHIL % (Manual) 1 % (0.0-6.0); LYMPHOCYTE % (Manual) 9 % (20.0-40.0); MONOCYTE % (Manual) 16 % (2.0-10.0); NEUTROPHIL % (Manual) 72 % (54.0-75.0); PLATELET ESTIMATE ADEQUATE
[2016-10-05 11:46] LABS: OVALOCYTES PRESENT
[2016-10-05 12:01] LABS: CROSSMATCH IMMEDIATE SPIN COMPATIBLE
[2016-10-05 18:35] VITALS: BP 137/76; PULSE 82; RESP 15; TEMP 98.9; O2SAT 94
[2016-10-05 19:52] LABS: BASOPHILS 0.6 % (0.0-2.0); EOSINOPHILS 0.8 % (0.0-6.0); EOSINOPHILS# 0.1 X 10^3uL (0.0-0.4); HEMATOCRIT 34.7 % (36.0-48.0); HEMOGLOBIN 11.1 g/dL (12.0-16.0); LYMPHOCYTES 12.2 % (20.0-40.0); MEAN CELL VOLUME 75.7 fL (84.0-102.0); MEAN CORPUS. HGB CONCENTRATION 31.9 g/dL (32.0-36.0); MEAN CORPUSCULAR HEMOGLOBIN 24.2 pg (29.0-35.0); MEAN PLATELET VOLUME 8.9 fL (7.4-10.4); MONOCYTES# 0.7 X 10^3uL (0.2-1.0); NEUTROPHILS# 6.3 X 10^3uL (2.6-6.7); RED BLOOD COUNT 4.58 X 10^6uL (4.20-6.10); RED CELL DISTRIBUTION WIDTH 18.8 % (11.5-14.5); WHITE BLOOD COUNT 8.1 X 10^3uL (3.9-10.7)
[2016-10-05 20:02] LABS: NEUTROPHILS 77.4 % (54.0-75.0)
== END 2016-10-05 20:30 | disposition home or self-care (01) | DRG 470 ==
LOC: IN 07:48
PROVIDERS: ADMIT Orthopaedic Surgery; ATTEND Orthopaedic Surgery
PROC: 0SRD0J9 Replacement of Left Knee Joint with Synthetic Substitute, Cemented, Open Approach (ICD-10-PCS; principal; 2016-10-01)
DX: M17.12 Unilateral primary osteoarthritis, left knee (principal); M85.89 Other specified disorders of bone density and structure, multiple sites
CPT/HCPCS: 36415; 36430; 82270; 85007; 85025; 85027; 85610; 86850; 86900; 86901; 86920; 96366; 96372; C1776; J0171; J1650; J1885; J2250; J2270; J2405; J2550; J2795; J3370; J7050; J7120; P9040-BL